=== PATIENT | male | born 1970 | race Caucasian/White ===

== ENCOUNTER → 2017-12-07 | Emergency (ER) | payer OTHER ==
[~2017-12-07] VITALS: Ht 170.2 cm; Wt 83.9 kg
[~2017-12-07] MED LIST: CIPRO500 MG PO; URIN D.S. TABL1 EACH PO; ZOCOR40 MG
== END | disposition home or self-care (01) ==
LOC: ER 01:17
DX: N39.0 Urinary tract infection, site not specified (principal)

== ENCOUNTER 2021-05-08 07:55 | Emergency (ER) | payer OTHER ==
[~2021-05-08] VITALS: Ht 165.1 cm; Wt 93.0 kg
== END 2021-05-08 09:54 | disposition home or self-care (01) ==
LOC: ER 07:55
DX: M04.8 Other autoinflammatory syndromes (principal)